=== PATIENT | female | born 1940 | race Caucasian/White ===

== ENCOUNTER 2016-10-19 03:42 | Emergency (ER) | payer OTHER ==
[~2016-10-19] VITALS: Ht 162.6 cm; Wt 61.3 kg
[~2016-10-19 03:42] MED LIST: ARTHROTEC 751 TABLET PO; BENICAR40 MG PO; BENTYL10 MG PO; Bentyl PO; CARDIZEM CD,CA120 MG PO; CELEBREX200 MG PO; DEXILANT60 MG PO; DICYCLOMINE HCL10 MG PO; Lasix PO; Motrin PO; PRILOSEC20 MG PO; Percocet 5/325,Endoc PO; Pyridoxine,Vitamin B PO; SIMVASTATIN40 M1 PO; ULTRAM50 MG PO; ZESTRIL,PRINIVI20 MG PO; ZYRTEC10 M3 PO
[2016-10-19 05:41] VITALS: BP 128/50
== END 2016-10-19 05:46 | disposition home or self-care (01) ==
LOC: EME → EDBD 03:42 → EME 05:46
DX: M25.512 Pain in left shoulder (principal); Z91.81 History of falling; Z88.1 Allergy status to other antibiotic agents; Z88.2 Allergy status to sulfonamides; Z88.0 Allergy status to penicillin; E78.5 Hyperlipidemia, unspecified; I10 Essential (primary) hypertension; K21.9 Gastro-esophageal reflux disease without esophagitis; M19.90 Unspecified osteoarthritis, unspecified site; Z87.440 Personal history of urinary (tract) infections
CPT/HCPCS: 73030; 73502; 99281; 99284